=== PATIENT | female | born 1975 | race Caucasian/White ===

== ENCOUNTER 2022-03-15 09:23 | Outpatient (CLI) | payer MEDICARE, MEDICAID, SELFPAY ==
[2022-03-15 15:31] LABS: Albumin* 4.5 g/dL (3.3-5.0)
[2022-03-15 15:32] LABS: Chloride* 99 mmol/L (96-114); Potassium* 4.6 mmol/L (3.6-5.1); Sodium* 135 mmol/L (135-149)
[2022-03-15 15:34] LABS: Aspartate Amino Transferase* 31 U/L (12-35); Bilirubin Total* 0.7 mg/dL (0.1-1.5); Blood Urea Nitrogen* 14 mg/dL (5-24); Carbon Dioxide* 29 mmol/L (20-32); Cholesterol* 231 mg/dL (90-199); Creatinine* 0.8 mg/dL (0.5-1.5); Estimated Glomerular Filt Rate 93 ml/min; Glucose* 89 mg/dL (60-115); Total Protein* 7.4 g/dL (6.0-8.3)
[2022-03-15 15:35] LABS: Alanine Aminotransferase* 22 U/L (4-35); Alkaline Phosphatase* 63 U/L (40-150); HDL Cholesterol* 83 mg/dL (>=50); LDL Cholesterol Calculated 138 mg/dL (<100); Triglycerides* 51 mg/dL (40-149)
[2022-03-15 15:37] LABS: Vitamin D 25 Hydroxy* 103 ng/mL (30-80)
== END 2022-03-15 09:24 | disposition home or self-care (01) ==
PROVIDERS: PCP Physician Assistant Medical; Visit Provider Physician Assistant Medical
DX: Z01.419 Encounter for gynecological examination (general) (routine) without abnormal findings (principal); E78.5 Hyperlipidemia, unspecified; Q90.9 Down syndrome, unspecified; E55.9 Vitamin D deficiency, unspecified
CPT/HCPCS: 80053; 80061; 82306; 84443

== ENCOUNTER 2023-04-22 08:11 | Outpatient (CLI) | payer MEDICARE, MEDICAID, SELFPAY | END 2023-04-22 08:12 | disposition home or self-care (01) | LOC: NFLDREF 05-01 12:29 | PROVIDERS: PCP Physician Assistant Medical; Referring Provider Physician Assistant Medical; Visit Provider Physician Assistant Medical | DX: Z00.00 Encounter for general adult medical examination without abnormal findings (principal); E55.9 Vitamin D deficiency, unspecified; E78.2 Mixed hyperlipidemia; E78.5 Hyperlipidemia, unspecified; Q24.9 Congenital malformation of heart, unspecified; Q90.9 Down syndrome, unspecified | CPT/HCPCS: 80053; 80061; 84443 ==

== ENCOUNTER 2023-07-29 08:42 | Outpatient (CLI) | payer MEDICARE, MEDICAID, SELFPAY | END 2023-07-29 08:43 | disposition home or self-care (01) | LOC: NFLDREF 08-15 07:56 | PROVIDERS: PCP Physician Assistant Medical; Referring Provider Physician Assistant Medical; Visit Provider Physician Assistant Medical | DX: E55.9 Vitamin D deficiency, unspecified (principal) | CPT/HCPCS: 82306 ==

== ENCOUNTER 2024-04-23 09:26 | Outpatient (CLI) | payer MEDICARE, MEDICAID, SELFPAY | END 2024-04-23 09:27 | disposition home or self-care (01) | LOC: NFLDREF 04-24 14:43 | PROVIDERS: PCP Physician Assistant Medical; Referring Provider Physician Assistant Medical; Visit Provider Physician Assistant Medical | DX: Q90.9 Down syndrome, unspecified (principal); E78.2 Mixed hyperlipidemia; E55.9 Vitamin D deficiency, unspecified; Q24.9 Congenital malformation of heart, unspecified; G47.33 Obstructive sleep apnea (adult) (pediatric) | CPT/HCPCS: 80053; 80061; 82306; 84443 ==

== ENCOUNTER 2024-12-15 11:15 | Outpatient (CLI) | payer MEDICARE, MEDICAID, SELFPAY | END 2024-12-15 11:16 | disposition home or self-care (01) | LOC: NFLDREF 12-21 21:15 | PROVIDERS: PCP Physician Assistant Medical; Referring Provider Physician Assistant Medical; Visit Provider Physician Assistant Medical | DX: E55.9 Vitamin D deficiency, unspecified (principal); R53.83 Other fatigue; F41.9 Anxiety disorder, unspecified; R79.0 Abnormal level of blood mineral; G47.9 Sleep disorder, unspecified | CPT/HCPCS: 82306; 82607; 82728; 84443 ==